=== PATIENT | female | born 1975 | race African-American/Black ===

== ENCOUNTER 2021-05-19 15:21 | Emergency (ER) | payer MEDICAID ==
[~2021-05-19] VITALS: Ht 177.8 cm; Wt 112.9 kg
--- NOTE | 2021-05-19 15:35 | NUR ---
TO ER BED 2, PAUL SALAZAR From Home "ALOC/Missed Dialysis. BS-55 Given D10", ORIENTED TO FIRST NAME ONLY, ATTACHED TO MONITOR BREATHING EVEN AND UNLABORED
[2021-05-19] MEDS ORDERED: PANTOPRAZOLE 40 MG VIAL ONE (15:43)
--- NOTE | 2021-05-19 15:44 | NUR ---
CALLED [facility] [phone] WILL FAX INFO TO US.
--- NOTE | 2021-05-19 15:50 | NUR ---
xray at bedside
[2021-05-19] MEDS ORDERED: PANTOPRAZOLE 40 MG VIAL IV ONE (16:00)
--- NOTE | 2021-05-19 16:23 | NUR ---
LAB AT BEDSIDE
[2021-05-19] MEDS ORDERED: OLAN10TA3 PO (17:17)
[2021-05-19] MEDS ORDERED: ENOX100D SQ (17:17)
[2021-05-19] MEDS ORDERED: MORP15TA PO (17:17)
[2021-05-19] MEDS ORDERED: PANT40TA49 PO (17:17)
[2021-05-19] MEDS ORDERED: IV NS 0.9% 500 ML BAG IV ONE (18:30)
--- NOTE | 2021-05-19 19:30 | NUR ---
COVID SWAB DONE AND SENT
--- NOTE | 2021-05-19 19:43 | NUR ---
SPOKE WITH LISA JIMENEZ AND NOTIFIED THAT PT IS TO BE ADMITTED. PT WILL BE ASSIGN TO PORFIRIO MENDOZA AND WILL CALL FOR AN MD TO .
--- NOTE | 2021-05-19 19:58 | NUR ---
ATTEMPTED TO INSERT IV AND DRAW BLOOD BUT STILL UNSUCCESSFUL. MID LINE ALREADY ORDERED AND AWAITING FOR MIDLINE NURSE.
--- NOTE | 2021-05-19 20:54 | NUR ---
PICC LINE NURSE @BEDSIDE; LINE PLACEMENT R [facility]A MIDLINE#18
--- NOTE | 2021-05-19 21:13 | NUR ---
EMMA SUAREZ MD
[2021-05-19 21:30] LABS: BASOPHILS # (AUTO) 0.1 K/uL (0.0-0.2); BASOPHILS % (AUTO) 0.3 % (0.0-2.0); EOSINOPHILS % (AUTO) 0.3 % (0.0-6.0); HEMATOCRIT 26 % (33-45); HEMOGLOBIN 8.5 g/dL (11.5-14.8); LYMPHOCYTES % (AUTO) 5.4 % (20.0-44.0); MEAN CORPUSCULAR HGB CONC 32 g/dl (31.0-36.0); MEAN CORPUSCULAR VOLUME 94 fL (82-100); MONOCYTES # (AUTO) 0.9 K/uL (0.1-1.30); MONOCYTES % (AUTO) 4.8 % (2.0-12.0); NEUTROPHILS % (AUTO) 89.2 % (43.0-81.0); PLATELET COUNT (AUTO) 192 K/uL (150-450)
[2021-05-19] MEDS ORDERED: PIPERACILLIN /TAZOBACTAM 3.375 G in IV D5W 50 ML IV ONE (22:00)
[2021-05-19] MEDS ORDERED: IV LR 1000 ML 1,000 ML IV ONE ×2 (22:00→23:00)
[2021-05-19] MEDS ORDERED: PIPERACILLIN /TAZOBACTAM 3.375 G VIAL IV ONE (22:06)
[2021-05-19 22:20] LABS: SERUM AMMONIA 27 umol/L (11-32)
[2021-05-19 22:31] LABS: ALANINE AMINOTRANSFERASE 37 U/L (12-78); ALKALINE PHOSPHATASE 140 U/L (46-116); ASPARTATE AMINOTRANSFERASE 57 U/L (15-37); BILIRUBIN,TOTAL 2.4 mg/dL (0.2-1.0); CALCIUM, SERUM 7.3 mg/dL (8.5-10.1); CARBON DIOXIDE 21 mmol/L (21-32); CHLORIDE 100 mmol/L (98-107); CREATININE 4.4 mg/dL (0.6-1.3); GLUCOSE 84 mg/dL (74-106); POTASSIUM 3.7 mmol/L (3.5-5.1); SODIUM SERUM 134 mmol/L (136-145); TOTAL PROTEIN, SERUM 5.5 g/dL (6.4-8.2); UREA NITROGEN, BLOOD 24 mg/dL (7-18)
[2021-05-19 22:32] LABS: ALBUMIN 1.2 g/dL (3.4-5.0)
[2021-05-19 22:39] LABS: ALCOHOL, BLOOD < 3 mg/dL (0-0)
[2021-05-19] MEDS ORDERED: ASPIRIN 325 MG TABLET ONE (22:50)
[2021-05-19 22:53] LABS: THYROID STIMULATING HORMONE 12.405 uIU/mL (0.358-3.74)
[2021-05-19] MEDS ORDERED: ASPIRIN 325 MG TABLET PO ONE (23:00)
--- NOTE | 2021-05-19 23:28 | NUR ---
LACTIC ACID REPEAT 2.9
--- NOTE | 2021-05-19 23:28 | NUR ---
TO: [facility]. CALL FOR REPORT , ALS TRANSPORT COMPLAINT SUPERVISOR AT 0030, ACCEPTING Vineet BECERRIL.
--- NOTE | 2021-05-20 | NUR ---
CALLED DANIEL[facility] JACOBO [phone], SPOKE WITH VIOLATE AND PROVIDED REPORT. ALL PERTINENT PT INFO GIVEN. ALS TRANPORT WILL DEPUTY COUNTY CLERK PT @0030. PT WILL BE UNDER THE SERVICE OF DR. LOPEZ. LOU SLADE.
--- NOTE | 2021-05-20 01:10 | NUR ---
CALLED [facility] [phone]; SPOKE WITH RUPERTO Menjivar/[place] FOR TRANSPORT SERVICE FOR PT AGRICULTURAL EDUCATION INSTRUCTOR GOING TO [facility]; HE SAID PCIKUP WAS PUSHED BACK FROM 0030 TO 0115. RN ACKNOWLEDGED. AWAITING FOR AMBULANCE TO AGRICULTURAL EDUCATION INSTRUCTOR PT.
[2021-05-20 01:45] VITALS: BP 125/89
--- NOTE | 2021-05-20 01:50 | NUR ---
PATIENT DISCHARGED GOING TO [facility] IN STABLE CONDITION. WAS PICKED UP BY ALS TRANSPORT [facility] ST[facility]. WRITTEN AND VERBAL AFTER CARE INSTRUCTIONS GIVEN. PATIENT VERBALIZES UNDERSTANDING OF INSTRUCTION.
== END 2021-05-20 02:00 | disposition short-term general hospital (02) ==
LOC: ER 15:25
DX: E11.649 Type 2 diabetes mellitus with hypoglycemia without coma (principal); Z93.3 Colostomy status; E11.22 Type 2 diabetes mellitus with diabetic chronic kidney disease; I12.0 Hypertensive chronic kidney disease with stage 5 chronic kidney disease or end stage renal disease; N18.6 End stage renal disease; Z99.2 Dependence on renal dialysis; D72.829 Elevated white blood cell count, unspecified; D64.9 Anemia, unspecified; Z86.718 Personal history of other venous thrombosis and embolism; Z85.9 Personal history of malignant neoplasm, unspecified; K92.2 Gastrointestinal hemorrhage, unspecified; Z20.822 Contact with and (suspected) exposure to COVID-19
CPT/HCPCS: 36410; 36415; 70450; 71045; 80048; 80076; 80320; 82140; 82962 ×2; 83605 ×2; 84443; 84484; 85025; 85730; 86850; 87040 ×2; 87081; 87426; 93005; 96361; 96365; 96375; 99285; A6403; C9113; C9803; J2543 ×2; J7040; J7060; J7120 ×2; G0480